=== PATIENT | male | born 1950 | race Caucasian/White ===

== ENCOUNTER 2022-02-11 09:24 | Day surgery (SDC) | payer MEDICARE ==
[~2022-02-11] VITALS: Ht 188 cm; Wt 118.2 kg
[2022-02-11] VITALS (8 sets, daily range): BP systolic 92–146; BP diastolic 53–77
[2022-02-11] MEDS ORDERED: diphenhydrAMINE 25mg capsule PO PRN (09:45)
[2022-02-11] MEDS ORDERED: normal saline 1,000 ML IV SCH (09:45)
[2022-02-11 10:28] LABS: EOSINOPHILS # (AUTO) 0.3 X10'3 (0-0.9); HEMATOCRIT 39.7 % (42.0-52.0); LYMPHOCYTES # (AUTO) 1.2 X10'3 (1.1-4.8); MEAN PLATELET VOLUME 8.8 FL (7.4-10.4); MONOCYTES # (AUTO) 0.7 X10'3 (0-0.9); WHITE BLOOD COUNT 8.2 X10'3 (4.5-11.0)
[2022-02-11 10:29] LABS: BASOPHILS # (AUTO) 0.1 X10'3 (0-0.2); BASOPHILS % (AUTO) 0.7 % (0-1); EOSINOPHILS % (AUTO) 3.1 % (0-6); HEMOGLOBIN 13.1 g/dl (14.0-17.9); LYMPHOCYTES % (AUTO) 14.8 % (21-51); MEAN CORPUSCULAR VOLUME 90.7 FL (78-98); NEUTROPHILS % (AUTO) 72.4 % (42-75); PLATELET COUNT 166 X10'3 (140-440); RED BLOOD COUNT 4.38 X10'6 (4.70-6.10)
[2022-02-11 10:39] LABS: ALBUMIN 4.4 G/DL (3.4-5.0); ANION GAP 5 (8-16); BLOOD UREA NITROGEN 24 MG/DL (7-18); BUN/CREATININE RATIO 18.8 (5.4-32.0); CALCIUM 9.7 MG/DL (8.5-10.1); CHLORIDE 97 MMOL/L (99-107); CREATININE 1.28 MG/DL (0.60-1.10); GLUCOSE 120 MG/DL (70-104); POTASSIUM 4.5 MMOL/L (3.5-5.1); SODIUM 138 MMOL/L (135-145); TOTAL CARBON DIOXIDE 36.1 MMOL/L (24-32); eGFR 55 ML/MIN
[2022-02-11] MEDS ORDERED: ASPI81TA52 PO (11:15)
[2022-02-11] MEDS ORDERED: AMA1T PO (11:15)
[2022-02-11] MEDS ORDERED: UMEC1DIS PO (11:15)
[2022-02-11] MEDS ORDERED: CYAN100T47 PO (11:15)
[2022-02-11] MEDS ORDERED: GABA300C PO (11:15)
[2022-02-11] MEDS ORDERED: APIX5TAB3 PO (11:15)
[2022-02-11] MEDS ORDERED: TRAM50TA2 PO (11:15)
[2022-02-11] MEDS ORDERED: ATOR40TA72 PO (11:15)
[2022-02-11] MEDS ORDERED: NITR1PAT63 TOP (11:15)
[2022-02-11] MEDS ORDERED: AMLO10TA13 PO (11:15)
[2022-02-11] MEDS ORDERED: ALBU90AE2 INH (11:15)
[2022-02-11] MEDS ORDERED: MULT-1085 PO (11:15)
[2022-02-11] MEDS ORDERED: METO-395 PO (11:15)
[2022-02-11] MEDS ORDERED: HYDR12.55 PO (11:15)
[2022-02-11] MEDS ORDERED: ALBU2.5V10 NEB (11:15)
[2022-02-11] MEDS ORDERED: ALLO300T8 PO (11:15)
[2022-02-11] MEDS ORDERED: OXYGEN NASALCANN (11:15)
[2022-02-11] MEDS ORDERED: METF-438 PO (11:15)
[2022-02-11] MEDS ORDERED: LOSA50TA64 PO (11:15)
[2022-02-11] MEDS ORDERED: FURO40TA4 PO (11:15)
[2022-02-11] MEDS ORDERED: fentaNYL/PF 50MCG/1 ML 2ML syringe ONE (12:51)
[2022-02-11] MEDS ORDERED: LIDOcaine 1% 30ml preserv. free vial ONE (12:51)
[2022-02-11] MEDS ORDERED: heparin 1,000unit/ml 10ml vial 10 ML ONE (12:51)
[2022-02-11] MEDS ORDERED: midazolam 1 mg/ML 2ml injection ONE (12:51)
[2022-02-11] MEDS ORDERED: iohexol 350MG/ML 100ml bottle IV ONE (12:51)
[2022-02-11] MEDS ORDERED: iohexol 350 MG/ML 50ML vial IV ONE ×4 (12:51→14:34)
== END 2022-02-11 18:30 | disposition home or self-care (01) ==
LOC: SSTAY O 09:24
PROVIDERS: ATTEND Internal Medicine Cardiovascular Disease
DX: I25.119 Atherosclerotic heart disease of native coronary artery with unspecified angina pectoris (principal); I35.0 Nonrheumatic aortic (valve) stenosis; I48.91 Unspecified atrial fibrillation; I25.82 Chronic total occlusion of coronary artery; I25.709 Atherosclerosis of coronary artery bypass graft(s), unspecified, with unspecified angina pectoris; J44.9 Chronic obstructive pulmonary disease, unspecified; I42.9 Cardiomyopathy, unspecified; E11.9 Type 2 diabetes mellitus without complications; M10.9 Gout, unspecified; I10 Essential (primary) hypertension; E78.49 Other hyperlipidemia; I11.9 Hypertensive heart disease without heart failure; I43 Cardiomyopathy in diseases classified elsewhere; Z95.5 Presence of coronary angioplasty implant and graft; Z95.0 Presence of cardiac pacemaker; Z96.612 Presence of left artificial shoulder joint; Z98.890 Other specified postprocedural states; Z79.82 Long term (current) use of aspirin; Z79.84 Long term (current) use of oral hypoglycemic drugs; Z79.899 Other long term (current) drug therapy; Z98.49 Cataract extraction status, unspecified eye; Z82.49 Family history of ischemic heart disease and other diseases of the circulatory system
CPT/HCPCS: 80048; 82948; 83735; 85025; 85610; 93005; 93461; 99152; 99153; C1751; C1760; C1769; C1894; J1644; J2250; J3010; J3490; J7030; Q0163; Q9967; A4615; A4620; A6258; C1725

== ENCOUNTER 2024-04-19 08:56 | Day surgery (SDC) | payer MEDICARE ==
[~2024-04-19] VITALS: Ht 188 cm; Wt 91.4 kg
[2024-04-19] VITALS (9 sets, daily range): BP systolic 109–128; BP diastolic 49–72; PULSE 70–75; RESP 12–14; TEMP 98.2; O2SAT 95–100
[~2024-04-19 08:56] MED LIST: ALB0.5UD IH; ALBU2.5V10 NEB; ALBU8.5H17 INH; ALBU90AE3 INH; ALLO300T8 PO; AMLO10TA13 PO; APIX5TAB3 PO; ASPI81TA52 PO; ATOR40TA72 PO; CYAN100T47 PO; FURO40TA4 PO; GABA-532 PO; GABA300C PO; GLIM1TAB57 PO; HYDR12.55 PO; LOSA50TA64 PO; METF-438 PO; METO-395 PO; MULT-1085 PO; MULT-467 PO; NITR1PAT63 TOP; OXYGEN NASALCANN; TRAM50TA2 PO; UMEC1DIS INH; UMEC1DIS PO; VITA1CAP19 PO
[2024-04-19] MEDS ORDERED: diphenhydrAMINE 25mg capsule PO PRN (09:15)
[2024-04-19] MEDS ORDERED: EZET10TA48 PO (09:44)
[2024-04-19] MEDS ORDERED: ISOS30TA84 PO (09:47)
[2024-04-19 09:52] LABS: BASOPHILS % (AUTO) 0.5 % (0-1); EOSINOPHILS # (AUTO) 0.1 X10'3 (0-0.9); EOSINOPHILS % (AUTO) 1.5 % (0-6); HEMATOCRIT 29.3 % (42.0-52.0); HEMOGLOBIN 9.5 g/dl (14.0-17.9); LYMPHOCYTES # (AUTO) 1.1 X10'3 (1.1-4.8); LYMPHOCYTES % (AUTO) 20.6 % (21-51); MEAN CORPUSCULAR HEMOGLOBIN 27.1 PG (27.0-31.0); MEAN CORPUSCULAR HGB CONC 32.4 g/dL (33.0-36.5); MEAN CORPUSCULAR VOLUME 83.6 FL (78-98); MEAN PLATELET VOLUME 7.7 FL (7.4-10.4); MONOCYTES # (AUTO) 0.4 X10'3 (0-0.9); MONOCYTES % (AUTO) 7.5 % (2-12); NEUTROPHILS # (AUTO) 3.7 X10'3 (1.8-7.7); NEUTROPHILS % (AUTO) 69.9 % (42-75); PLATELET COUNT 202 X10'3 (140-440); RED BLOOD COUNT 3.51 X10'6 (4.70-6.10); RED CELL DISTRIBUTION WIDTH 18.8 % (11.5-14.5); WHITE BLOOD COUNT 5.3 X10'3 (4.5-11.0)
[2024-04-19 10:01] LABS: ALBUMIN 3.2 G/DL (3.4-5.0); ANION GAP 7 (8-16); BLOOD UREA NITROGEN 36 MG/DL (7-18); BUN/CREATININE RATIO 33.3 (10.0-20.0); CALCIUM 9.5 MG/DL (8.5-10.1); CHLORIDE 101 MMOL/L (99-107); CREATININE 1.08 MG/DL (0.60-1.10); GLUCOSE 130 MG/DL (70-104); MAGNESIUM 2.2 MG/DL (1.5-2.4); POTASSIUM 4.8 MMOL/L (3.5-5.1); SODIUM 140 MMOL/L (135-145); TOTAL CARBON DIOXIDE 32.3 MMOL/L (24-32); eCRCL 70 ML/MIN; eGFR 67 ML/MIN
[2024-04-19 10:03] LABS: INR 1.1 INR; PROTHROMBIN TIME 11.4 SECONDS (9.0-12.0)
[2024-04-19] MEDS: sodium bicarbonate 1meq/ml syr 150 ML in dextrose 5%-water 1,000 ML IV ONE (10:08)
[2024-04-19] MEDS: diphenhydrAMINE 25mg capsule PO PRN (10:08)
[2024-04-19] MEDS ORDERED: fentaNYL/PF 50MCG/1 ML 2ML syringe ONE (10:24)
[2024-04-19] MEDS ORDERED: verapamil 2.5 mg/ml inj IV ONE (10:24)
[2024-04-19] MEDS ORDERED: LIDOcaine 1% (10mg/ml) 2ml vial ONE (10:24)
[2024-04-19] MEDS ORDERED: iohexol 350 MG/ML 50ML vial IV ONE ×2 (10:24→11:57)
[2024-04-19] MEDS ORDERED: midazolam 1 mg/ML 2ml injection ONE ×2 (10:24→11:09)
[2024-04-19] MEDS ORDERED: heparin 1,000unit/ml 10ml vial 10 ML ONE (10:25)
[2024-04-19] MEDS ORDERED: iohexol 350MG/ML 100ml bottle IV ONE (10:25)
[2024-04-19] MEDS ORDERED: LIDOcaine 1% 30ml preserv. free vial ONE (10:53)
[2024-04-19] MEDS ORDERED: HYDROcodone/acetaminophen 10/325mg tab PO PRN (13:00)
[2024-04-19] MEDS ORDERED: ondansetron/PF 4mg/2ml inj IV PRN (13:00)
[2024-04-19] MEDS ORDERED: proCHLORperazine 10 MG/2 ml inj IV PRN (13:00)
[2024-04-19] MEDS ORDERED: HYDROcodone/acetaminophen 5mg/325mg tablet PO PRN (13:00)
== END 2024-04-19 16:15 | disposition home or self-care (01) ==
LOC: SSTAY O 08:56
PROVIDERS: ATTEND Internal Medicine Cardiovascular Disease
DX: I35.0 Nonrheumatic aortic (valve) stenosis (principal); I25.10 Atherosclerotic heart disease of native coronary artery without angina pectoris; I27.20 Pulmonary hypertension, unspecified; I25.810 Atherosclerosis of coronary artery bypass graft(s) without angina pectoris; I48.20 Chronic atrial fibrillation, unspecified; I42.9 Cardiomyopathy, unspecified; I10 Essential (primary) hypertension; E11.9 Type 2 diabetes mellitus without complications; J44.9 Chronic obstructive pulmonary disease, unspecified; M10.9 Gout, unspecified; E78.00 Pure hypercholesterolemia, unspecified; E83.110 Hereditary hemochromatosis; Z82.49 Family history of ischemic heart disease and other diseases of the circulatory system; Z80.9 Family history of malignant neoplasm, unspecified; Z87.891 Personal history of nicotine dependence; Z79.899 Other long term (current) drug therapy; Z79.01 Long term (current) use of anticoagulants
CPT/HCPCS: 80048; 82948; 83735; 85025; 85610; 93005; 93461; A6258; A6402; C1751; C1769; C1887; C1894; J1644; J2003; J2250; J3010; J3490; J7030; J7070; Q0163; Q9967; Z7610; 99152; 99153; A6449

== ENCOUNTER 2024-04-23 10:26 | Outpatient (CLI) | payer MEDICARE ==
[~2024-04-23] VITALS: Ht 182.9 cm; Wt 93.0 kg
[~2024-04-23 10:26] MED LIST changes: -ALB0.5UD IH; -ALBU2.5V10 NEB; -ALBU90AE3 INH; -APIX5TAB3 PO; +EZET10TA48 PO; -GABA-532 PO; +IODIXANOL 320 MG/ML INFUS..BTL 100ML IV ONE; +ISOS30TA84 PO; -MULT-467 PO; -NITR1PAT63 TOP; -UMEC1DIS INH; -VITA1CAP19 PO
[2024-04-23 11:22] LABS: BASOPHILS % (AUTO) 0.7 % (0-1); EOSINOPHILS # (AUTO) 0.1 X10'3 (0-0.9); EOSINOPHILS % (AUTO) 2.5 % (0-6); HEMATOCRIT 29.2 % (42.0-52.0); HEMOGLOBIN 9.4 g/dl (14.0-17.9); LYMPHOCYTES # (AUTO) 0.8 X10'3 (1.1-4.8); LYMPHOCYTES % (AUTO) 20.7 % (21-51); MEAN CORPUSCULAR HEMOGLOBIN 26.9 PG (27.0-31.0); MEAN CORPUSCULAR HGB CONC 32.1 g/dL (33.0-36.5); MEAN CORPUSCULAR VOLUME 83.7 FL (78-98); MEAN PLATELET VOLUME 8.1 FL (7.4-10.4); MONOCYTES # (AUTO) 0.4 X10'3 (0-0.9); MONOCYTES % (AUTO) 10.8 % (2-12); NEUTROPHILS # (AUTO) 2.6 X10'3 (1.8-7.7); NEUTROPHILS % (AUTO) 65.3 % (42-75); PLATELET COUNT 227 X10'3 (140-440); RED BLOOD COUNT 3.49 X10'6 (4.70-6.10); RED CELL DISTRIBUTION WIDTH 18.8 % (11.5-14.5); WHITE BLOOD COUNT 3.9 X10'3 (4.5-11.0)
[2024-04-23 11:30] LABS: APTT 27 SECONDS (22-32); INR 1.1 INR; PROTHROMBIN TIME 11.6 SECONDS (9.0-12.0)
[2024-04-23 11:41] LABS: ABG BASE EXCESS 4.3 mmol/L (-2.0-3.0); ABG HCO3 29.1 mmol/L (21.0-28.0); ABG OXYGEN SATURATION 96.5 % (94.0-98.0); ABG PCO2 (T) 45.1 mmHg (35.0-48.0); ABG PH (T) 7.428 (7.350-7.450); ABG PO2 (T) 88.4 mmHg (83.0-108.0); ALLEN'S TEST POSITIVE; FCOHb 0.5 % (0.5-1.5); FHHb 3.5 % (0.0-5.0); FMetHb 0.3 % (0.0-1.5); FO2Hb 95.7 % (94.0-98.0); MODE NASAL CANNULA; TOTAL HEMOGLOBIN 9.9 G/dl (13.5-17.5)
[2024-04-23 11:43] LABS: ALANINE AMINOTRANSFERASE 46 U/L (12-78); ALBUMIN 2.9 G/DL (3.4-5.0); ALBUMIN/GLOBULIN RATIO 0.6 (1.1-1.5); ALKALINE PHOSPHATASE 110 IU/L (46-116); ANION GAP 3 (8-16); ASPARTATE AMINO TRANSFERASE 29 U/L (10-37); BILIRUBIN,TOTAL 0.4 MG/DL (0.1-1.0); BLOOD UREA NITROGEN 30 MG/DL (7-18); BUN/CREATININE RATIO 30.3 (10.0-20.0); CALCIUM 9.1 MG/DL (8.5-10.1); CHLORIDE 100 MMOL/L (99-107); CREATININE 0.99 MG/DL (0.60-1.10); GLUCOSE 168 MG/DL (70-104); POTASSIUM 4.4 MMOL/L (3.5-5.1); PRO BRAIN NATRIURETIC PEPTIDE 1241 PG/ML (0-125); SODIUM 139 MMOL/L (135-145); TOTAL CARBON DIOXIDE 36.4 MMOL/L (24-32); TOTAL PROTEIN 7.9 G/DL (6.4-8.2); eGFR 74 ML/MIN
[2024-04-23] MEDS: albuterol 2.5 MG/3 ML nebule NEB ONE (12:13)
[2024-04-23 12:14] VITALS: PULSE 99; RESP 14; O2SAT 96
[2024-04-23 12:25] VITALS: PULSE 70; RESP 15
== END 2024-04-23 23:59 | disposition home or self-care (01) ==
LOC: RAD 10:26
PROVIDERS: ATTEND Internal Medicine Cardiovascular Disease
DX: J98.6 Disorders of diaphragm (principal); I35.0 Nonrheumatic aortic (valve) stenosis; R06.02 Shortness of breath; I65.29 Occlusion and stenosis of unspecified carotid artery
CPT/HCPCS: 36600; 71046; 71275; 74174; 75572; 80053; 82803; 83880; 85018; 85025; 85610; 85730; 94060; 94727; 94729; 94760; Q9967